=== PATIENT | female | born 1965 | race Two or more races ===

== ENCOUNTER 2017-11-20 10:22 | Outpatient (CLI) | payer OTHER ==
[~2017-11-20 10:22] MED LIST: ZYRTEC10 MG PO
== END 2017-11-20 10:27 | disposition home or self-care (01) ==
LOC: RAD 501 10:22
DX: J45.40 Moderate persistent asthma, uncomplicated (principal); R05 Cough

== ENCOUNTER → 2018-02-07 13:22 | Outpatient (CLI) | payer OTHER | END | disposition home or self-care (01) | LOC: LAB 13:22 | DX: N92.5 Other specified irregular menstruation (principal); N94.0 Mittelschmerz; N95.1 Menopausal and female climacteric states; R68.82 Decreased libido; K85.80 Other acute pancreatitis without necrosis or infection; E88.81 Metabolic syndrome and other insulin resistance; I10 Essential (primary) hypertension; D72.818 Other decreased white blood cell count; D68.0 Von Willebrand disease; D51.3 Other dietary vitamin B12 deficiency anemia; D50.8 Other iron deficiency anemias; D68.8 Other specified coagulation defects ==

== ENCOUNTER 2018-09-05 07:47 | Outpatient (CLI) | payer OTHER | END 2018-09-05 15:33 | disposition home or self-care (01) | LOC: LAB 07:47 | DX: D72.818 Other decreased white blood cell count (principal); D68.0 Von Willebrand disease; D51.3 Other dietary vitamin B12 deficiency anemia; J35.1 Hypertrophy of tonsils; D50.8 Other iron deficiency anemias; D51.8 Other vitamin B12 deficiency anemias; I10 Essential (primary) hypertension; D68.8 Other specified coagulation defects ==

== ENCOUNTER 2018-10-31 09:17 | Outpatient (CLI) | payer OTHER | END 2018-10-31 09:20 | disposition home or self-care (01) | LOC: RAD 09:17 | DX: M41.80 Other forms of scoliosis, site unspecified (principal); M17.0 Bilateral primary osteoarthritis of knee ==

== ENCOUNTER → 2018-11-19 07:20 | Outpatient (CLI) | payer OTHER | END | disposition home or self-care (01) | LOC: LAB 11-11 07:32 | DX: Z00.8 Encounter for other general examination (principal) ==

== ENCOUNTER 2019-05-01 07:30 | Outpatient (CLI) | payer OTHER | END 2019-05-01 07:40 | disposition home or self-care (01) | LOC: LAB 07:30 | DX: D68.0 Von Willebrand disease (principal); D72.818 Other decreased white blood cell count; D51.3 Other dietary vitamin B12 deficiency anemia; J35.1 Hypertrophy of tonsils; Z85.72 Personal history of non-Hodgkin lymphomas; D50.8 Other iron deficiency anemias; D51.8 Other vitamin B12 deficiency anemias; I10 Essential (primary) hypertension; E03.8 Other specified hypothyroidism; E55.9 Vitamin D deficiency, unspecified; K90.89 Other intestinal malabsorption; B27.99 Infectious mononucleosis, unspecified with other complication ==

== ENCOUNTER 2019-05-29 07:35 | Outpatient (CLI) | payer OTHER | END 2019-05-29 07:37 | disposition home or self-care (01) | LOC: NUCLEAR 07:35 | DX: C85.11 Unspecified B-cell lymphoma, lymph nodes of head, face, and neck (principal) | CPT/HCPCS: 78816; A9552 ==

== ENCOUNTER 2020-03-04 07:39 | Outpatient (CLI) | payer OTHER | END 2020-03-04 07:45 | disposition home or self-care (01) | LOC: NUCLEAR 07:39 | PROVIDERS: ATTEND Internal Medicine Cardiovascular Disease | DX: R07.89 Other chest pain (principal) | CPT/HCPCS: 78452; 93017; A9500 ==

== ENCOUNTER → 2020-04-01 | Outpatient (CLI) | payer OTHER | END | disposition home or self-care (01) | LOC: RAD 13:41 | PROVIDERS: ATTEND Orthopaedic Surgery Orthopaedic Surgery of the Spine | DX: M41.85 Other forms of scoliosis, thoracolumbar region (principal) ==

== ENCOUNTER → 2020-05-18 12:15 | Outpatient (CLI) | payer OTHER | END | disposition home or self-care (01) | LOC: LAB 12:15 | DX: Z20.828 Contact with and (suspected) exposure to other viral communicable diseases (principal) ==

== ENCOUNTER → 2020-06-27 | Outpatient (CLI) | payer OTHER | END | disposition home or self-care (01) | LOC: NUCLEAR 06-20 08:30 | PROVIDERS: ATTEND Internal Medicine Hematology & Oncology | DX: C95.11 Chronic leukemia of unspecified cell type, in remission (principal); D68.0 Von Willebrand disease; D72.10 Eosinophilia, unspecified; J33.1 Polypoid sinus degeneration; D51.3 Other dietary vitamin B12 deficiency anemia; Z85.72 Personal history of non-Hodgkin lymphomas | CPT/HCPCS: 78816; A9552 ==

== ENCOUNTER 2020-07-01 07:07 | Outpatient (CLI) | payer OTHER | END 2020-07-01 16:41 | disposition home or self-care (01) | LOC: LAB 07:07 | PROVIDERS: ATTEND Internal Medicine Hematology & Oncology | DX: D51.3 Other dietary vitamin B12 deficiency anemia (principal); E55.9 Vitamin D deficiency, unspecified; D68.0 Von Willebrand disease; D72.818 Other decreased white blood cell count; J35.1 Hypertrophy of tonsils; Z85.72 Personal history of non-Hodgkin lymphomas ==

== ENCOUNTER → 2020-09-01 06:15 | Outpatient (CLI) | payer OTHER | END | disposition home or self-care (01) | LOC: LAB 06:15 | PROVIDERS: ATTEND Internal Medicine Pulmonary Disease | DX: R05 Cough (principal); R06.02 Shortness of breath; R50.9 Fever, unspecified; Z20.822 Contact with and (suspected) exposure to COVID-19; Z20.828 Contact with and (suspected) exposure to other viral communicable diseases ==

== ENCOUNTER → 2020-10-07 09:44 | Outpatient (CLI) | payer OTHER | END | disposition home or self-care (01) | LOC: EDBD 09:44 → LAB 09:44 | PROVIDERS: ATTEND Obstetrics & Gynecology Gynecology | DX: Z03.818 Encounter for observation for suspected exposure to other biological agents ruled out (principal); N92.5 Other specified irregular menstruation; N94.0 Mittelschmerz; R68.82 Decreased libido ==

== ENCOUNTER → 2020-11-07 08:19 | Outpatient (CLI) | payer OTHER | END | disposition home or self-care (01) | LOC: LAB 08:19 → EDBD 08:19 | PROVIDERS: ATTEND Emergency Medicine Pediatric Emergency Medicine | DX: Z03.818 Encounter for observation for suspected exposure to other biological agents ruled out (principal) ==

== ENCOUNTER 2020-11-14 07:32 | Outpatient (CLI) | payer OTHER | END 2020-11-14 15:00 | disposition home or self-care (01) | LOC: EDBD 07:32 → LAB 07:32 | PROVIDERS: ATTEND Emergency Medicine Pediatric Emergency Medicine | DX: Z03.818 Encounter for observation for suspected exposure to other biological agents ruled out (principal) ==

== ENCOUNTER 2021-02-01 13:23 | Outpatient (CLI) | payer OTHER | END 2021-02-01 15:10 | disposition home or self-care (01) | LOC: NUCLEAR 13:23 → EDBD 13:23 → NUCLEAR 15:10 | PROVIDERS: ATTEND Obstetrics & Gynecology Gynecology | DX: M81.0 Age-related osteoporosis without current pathological fracture (principal) ==

== ENCOUNTER 2021-02-07 08:00 | Outpatient (CLI) | payer OTHER | END 2021-02-07 08:30 | disposition home or self-care (01) | LOC: PPH VACUNA 08:00 | DX: Z23 Encounter for immunization (principal) ==

== ENCOUNTER 2021-02-07 14:09 | Outpatient (CLI) | payer OTHER | END 2021-02-07 14:10 | disposition home or self-care (01) | LOC: SONOGRAMA 14:09 | PROVIDERS: ATTEND Internal Medicine | DX: E04.2 Nontoxic multinodular goiter (principal) ==

== ENCOUNTER 2021-03-06 14:17 | Outpatient (CLI) | payer OTHER | END 2021-03-06 14:31 | disposition home or self-care (01) | LOC: RAD 14:17 | PROVIDERS: ATTEND Orthopaedic Surgery Orthopaedic Surgery of the Spine | DX: M25.561 Pain in right knee (principal); M25.562 Pain in left knee; M41.82 Other forms of scoliosis, cervical region ==

== ENCOUNTER → 2021-03-22 | Outpatient (CLI) | payer OTHER | END | disposition home or self-care (01) | LOC: PPH VACUNA 08:00 | PROVIDERS: ATTEND Emergency Medicine Pediatric Emergency Medicine | DX: Z23 Encounter for immunization (principal) ==

== ENCOUNTER 2021-05-11 11:31 | Outpatient (CLI) | payer OTHER | END 2021-05-11 13:23 | disposition home or self-care (01) | LOC: LAB 11:31 | PROVIDERS: ATTEND Internal Medicine Hematology & Oncology | DX: D50.8 Other iron deficiency anemias (principal); Z01.818 Encounter for other preprocedural examination; Z01.812 Encounter for preprocedural laboratory examination; R79.89 Other specified abnormal findings of blood chemistry; I10 Essential (primary) hypertension; R74.02 Elevation of levels of lactic acid dehydrogenase [LDH]; K76.89 Other specified diseases of liver; D68.8 Other specified coagulation defects; C85.11 Unspecified B-cell lymphoma, lymph nodes of head, face, and neck; D68.0 Von Willebrand disease; D72.818 Other decreased white blood cell count; D51.3 Other dietary vitamin B12 deficiency anemia; J35.1 Hypertrophy of tonsils ==

== ENCOUNTER 2021-05-11 14:00 | Outpatient (CLI) | payer OTHER | END 2021-05-11 14:04 | disposition home or self-care (01) | LOC: RAD 14:00 | DX: I10 Essential (primary) hypertension (principal) ==

== ENCOUNTER 2021-05-15 07:36 | Outpatient (CLI) | payer OTHER | END 2021-05-15 08:36 | disposition home or self-care (01) | LOC: LAB 07:36 | DX: Z03.818 Encounter for observation for suspected exposure to other biological agents ruled out (principal) ==

== ENCOUNTER → 2021-06-30 07:48 | Outpatient (CLI) | payer OTHER | END | disposition home or self-care (01) | LOC: LAB 06-12 07:49 | PROVIDERS: ATTEND Emergency Medicine Pediatric Emergency Medicine | DX: Z03.818 Encounter for observation for suspected exposure to other biological agents ruled out (principal) ==

== ENCOUNTER 2022-01-31 06:06 | Outpatient (CLI) | payer OTHER | END 2022-01-31 08:10 | disposition home or self-care (01) | LOC: LAB 06:06 | PROVIDERS: ATTEND Emergency Medicine Pediatric Emergency Medicine | DX: N92.5 Other specified irregular menstruation (principal); N94.0 Mittelschmerz; N95.1 Menopausal and female climacteric states; R68.82 Decreased libido; K85.90 Acute pancreatitis without necrosis or infection, unspecified; E88.81 Metabolic syndrome and other insulin resistance; I10 Essential (primary) hypertension; E03.9 Hypothyroidism, unspecified; N39.0 Urinary tract infection, site not specified; R19.09 Other intra-abdominal and pelvic swelling, mass and lump; R79.0 Abnormal level of blood mineral; E11.9 Type 2 diabetes mellitus without complications; R94.7 Abnormal results of other endocrine function studies; E78.00 Pure hypercholesterolemia, unspecified; E55.9 Vitamin D deficiency, unspecified; N97.8 Female infertility of other origin; D27.9 Benign neoplasm of unspecified ovary; M25.561 Pain in right knee; M25.562 Pain in left knee ==

== ENCOUNTER 2022-02-02 08:20 | Outpatient (CLI) | payer OTHER | END 2022-02-02 08:30 | disposition home or self-care (01) | LOC: PPH VACUNA 08:20 | PROVIDERS: ATTEND Emergency Medicine Pediatric Emergency Medicine | DX: Z23 Encounter for immunization (principal) ==

== ENCOUNTER 2022-02-08 06:53 | Outpatient (CLI) | payer OTHER | END 2022-02-08 07:35 | disposition home or self-care (01) | LOC: MRI 06:53 | PROVIDERS: ATTEND Orthopaedic Surgery | DX: M25.561 Pain in right knee (principal); M94.261 Chondromalacia, right knee | CPT/HCPCS: 73721 ==

== ENCOUNTER 2022-05-21 12:37 | Outpatient (CLI) | payer OTHER | END 2022-05-21 12:58 | disposition home or self-care (01) | LOC: LAB 12:37 | PROVIDERS: ATTEND Internal Medicine Pulmonary Disease | DX: J11.1 Influenza due to unidentified influenza virus with other respiratory manifestations (principal); J20.1 Acute bronchitis due to Hemophilus influenzae; R05.9 Cough, unspecified; R06.02 Shortness of breath; R50.9 Fever, unspecified; Z20.828 Contact with and (suspected) exposure to other viral communicable diseases ==

== ENCOUNTER 2022-06-05 07:38 | Outpatient (CLI) | payer OTHER | END 2022-06-05 07:43 | disposition home or self-care (01) | LOC: NUCLEAR 07:38 | DX: D68.8 Other specified coagulation defects (principal) | CPT/HCPCS: 78816; A9552 ==

== ENCOUNTER 2022-06-13 09:06 | Outpatient (CLI) | payer OTHER | END 2022-06-13 09:16 | disposition home or self-care (01) | LOC: PPH VACUNA 09:06 | PROVIDERS: ATTEND Emergency Medicine Pediatric Emergency Medicine | DX: Z23 Encounter for immunization (principal) ==

== ENCOUNTER 2022-07-25 07:33 | Outpatient (CLI) | payer OTHER | END 2022-07-25 07:44 | disposition home or self-care (01) | LOC: SONOGRAMA 07:33 | DX: E03.9 Hypothyroidism, unspecified (principal) ==

== ENCOUNTER 2022-10-13 08:30 | Outpatient (CLI) | payer OTHER | END 2022-10-13 08:34 | disposition home or self-care (01) | LOC: LAB 08:30 | DX: Z01.812 Encounter for preprocedural laboratory examination (principal); D68.8 Other specified coagulation defects; N63.0 Unspecified lump in unspecified breast; N39.0 Urinary tract infection, site not specified; Z86.03 Personal history of neoplasm of uncertain behavior ==

== ENCOUNTER 2022-11-23 | Outpatient (CLI) | payer OTHER ==
[~2022-11-23] MED LIST changes: +ARMOUR THYROID15 MG
== END 2022-11-23 00:15 | disposition home or self-care (01) ==
LOC: PPH VACUNA
PROVIDERS: ATTEND Emergency Medicine Pediatric Emergency Medicine
DX: Z23 Encounter for immunization (principal)

== ENCOUNTER 2023-02-05 07:18 | Outpatient (CLI) | payer OTHER | END 2023-02-05 07:59 | disposition home or self-care (01) | LOC: LAB 07:18 | PROVIDERS: ATTEND Emergency Medicine Pediatric Emergency Medicine | DX: D64.9 Anemia, unspecified (principal); R53.83 Other fatigue ==

== ENCOUNTER 2023-02-11 08:07 | Outpatient (CLI) | payer OTHER | END 2023-02-11 08:09 | disposition home or self-care (01) | LOC: LAB 08:07 | DX: D68.8 Other specified coagulation defects (principal); D68.00 Von Willebrand disease, unspecified; Z88.6 Allergy status to analgesic agent ==

== ENCOUNTER 2023-03-05 08:11 | Outpatient (CLI) | payer OTHER | END 2023-03-05 08:12 | disposition home or self-care (01) | LOC: NUCLEAR 08:11 | DX: D68.8 Other specified coagulation defects (principal); D68.00 Von Willebrand disease, unspecified ==

== ENCOUNTER 2023-03-06 09:19 | Outpatient (CLI) | payer OTHER | END 2023-03-06 12:05 | disposition home or self-care (01) | LOC: LAB 09:19 | PROVIDERS: ATTEND Colon & Rectal Surgery | DX: K92.1 Melena (principal); R14.0 Abdominal distension (gaseous); Z88.6 Allergy status to analgesic agent; Z88.9 Allergy status to unspecified drugs, medicaments and biological substances ==

== ENCOUNTER 2023-05-01 14:00 | Outpatient (CLI) | payer OTHER | END 2023-05-01 14:10 | disposition home or self-care (01) | LOC: PPH VACUNA 14:00 | PROVIDERS: ATTEND Emergency Medicine Pediatric Emergency Medicine | DX: Z23 Encounter for immunization (principal) | CPT/HCPCS: 90686; G0008 ==

== ENCOUNTER 2023-05-20 07:26 | Outpatient (CLI) | payer OTHER | END 2023-05-20 15:17 | disposition home or self-care (01) | LOC: TOM 07:26 | DX: Z94.81 Bone marrow transplant status (principal); Z88.6 Allergy status to analgesic agent ==

== ENCOUNTER 2023-07-17 09:46 | Outpatient (CLI) | payer OTHER ==
[2023-07-17 10:57] LABS: HEMATOCRIT 41.7 % (36.0-45.00); HEMOGLOBIN 14.1 g/dL (12.0-15.00); MEAN CORPUSCULAR HEMOGLOBIN 31.4 pg (27.00-32.0); MEAN CORPUSCULAR HGB CONC 33.8 g/dl (32.0-36.0); PLATELET COUNT 211 K/uL (150-450); RED BLOOD COUNT 4.48 M/uL (4.00-6.00); RED CELL DISTRIBUTION WIDTH 14.2 % (11.5-14.5)
[2023-07-17 11:25] LABS: INR 0.99; PARTIAL THROMBOPLASTIN TIME 31.6 SECONDS (22.0-34.0); PROTHROMBIN TIME 10.4 SECONDS (9.0-11.5)
[2023-07-17 11:29] LABS: ALBUMIN 4.5 gm/dL (3.4-5.0); BILIRUBIN TOTAL 0.93 mg/dL (0.3-1.2); CALCIUM 10.3 mg/dL (8.5-10.1); CREATININE SERUM 0.78 mg/dL (0.55-1.02); GFR 75.85; GLOBULINA 2.6 G/DL (2.4-3.5); POTASSIUM 4.69 mEq/L (3.5-5.1); TOTAL PROTEIN 7.1 gm/dL (6.4-8.2)
== END 2023-07-17 12:25 | disposition home or self-care (01) ==
LOC: LAB 09:46
DX: D68.8 Other specified coagulation defects (principal)

== ENCOUNTER 2023-08-07 09:04 | Outpatient (CLI) | payer OTHER ==
[2023-08-07 10:06] LABS: HEMATOCRIT 39.7 % (36.0-45.00); HEMOGLOBIN 13.4 g/dL (12.0-15.00); MEAN CELL VOLUME 91.9 fL (80.00-100.00); MEAN CORPUSCULAR HGB CONC 33.7 g/dl (32.0-36.0); PLATELET COUNT 210 K/uL (150-450); RED BLOOD COUNT 4.32 M/uL (4.00-6.00); RED CELL DISTRIBUTION WIDTH 13.9 % (11.5-14.5)
[2023-08-07 10:36] LABS: CALCIUM 10.8 mg/dL (8.5-10.1); CREATININE SERUM 0.64 mg/dL (0.55-1.02); GFR 95.31; POTASSIUM 3.97 mEq/L (3.5-5.1)
[2023-08-07 10:49] LABS: INR 0.98; PARTIAL THROMBOPLASTIN TIME 31.5 SECONDS (22.0-34.0); PROTHROMBIN TIME 10.3 SECONDS (9.0-11.5)
[2023-08-07 11:00] LABS: VITAMIN D3 25 HYDROXY 48.92 ng/ml (30-120)
== END 2023-08-07 11:55 | disposition home or self-care (01) ==
LOC: LAB 09:04
DX: D64.9 Anemia, unspecified (principal); I12.9 Hypertensive chronic kidney disease with stage 1 through stage 4 chronic kidney disease, or unspecified chronic kidney disease; D68.9 Coagulation defect, unspecified; E56.9 Vitamin deficiency, unspecified; E55.9 Vitamin D deficiency, unspecified

== ENCOUNTER 2023-10-02 06:41 | Outpatient (CLI) | payer OTHER | END 2023-10-02 06:46 | disposition home or self-care (01) | LOC: NUCLEAR 06:41 | DX: D68.8 Other specified coagulation defects (principal); D68.00 Von Willebrand disease, unspecified ==

== ENCOUNTER 2024-03-16 14:07 | Outpatient (CLI) | payer OTHER | END 2024-03-16 14:18 | disposition home or self-care (01) | LOC: SONOGRAMA 14:07 | PROVIDERS: ATTEND Obstetrics & Gynecology | DX: R10.2 Pelvic and perineal pain (principal); R19.00 Intra-abdominal and pelvic swelling, mass and lump, unspecified site ==

== ENCOUNTER 2024-04-14 07:22 | Outpatient (CLI) | payer OTHER | END 2024-04-14 07:30 | disposition home or self-care (01) | LOC: NUCLEAR 07:22 | DX: D68.8 Other specified coagulation defects (principal); D68.00 Von Willebrand disease, unspecified ==

== ENCOUNTER 2024-04-21 09:07 | Outpatient (CLI) | payer OTHER ==
[2024-04-21 09:48] LABS: HEMATOCRIT 39.7 % (36.0-45.00); HEMOGLOBIN 13.2 g/dL (12.0-15.00); MEAN CELL VOLUME 94.6 fL (80.00-100.00); MEAN CORPUSCULAR HEMOGLOBIN 31.5 pg (27.00-32.0); MEAN CORPUSCULAR HGB CONC 33.3 g/dl (32.0-36.0); PLATELET COUNT 177 K/uL (150-450); RED CELL DISTRIBUTION WIDTH 13.4 % (11.5-14.5)
[2024-04-21 10:31] LABS: ALBUMIN 4.3 gm/dL (3.4-5.0); BILIRUBIN TOTAL 0.59 mg/dL (0.3-1.2); CALCIUM 10.3 mg/dL (8.5-10.1); CREATININE SERUM 0.7 mg/dL (0.55-1.02); GFR 85.65; GLOBULINA 2.5 G/DL (2.4-3.5); POTASSIUM 4.07 mEq/L (3.5-5.1); TOTAL PROTEIN 6.8 gm/dL (6.4-8.2)
== END 2024-04-21 15:30 | disposition home or self-care (01) ==
LOC: LAB 09:07
DX: D68.8 Other specified coagulation defects (principal)

== ENCOUNTER 2024-05-14 06:50 | Outpatient (CLI) | payer OTHER ==
[2024-05-14 13:46] LABS: T4 TOTAL 10.91 UG/DL (4.8-13.9); TSH 1.47 uIU/mL (0.358-3.74)
== END 2024-05-14 12:51 | disposition home or self-care (01) ==
LOC: LAB 06:50
DX: D68.8 Other specified coagulation defects (principal); D68.09 Other von Willebrand disease

== ENCOUNTER 2024-08-13 07:54 | Outpatient (CLI) | payer OTHER ==
[2024-08-13 08:23] LABS: HEMATOCRIT 40.1 % (36.0-45.00); HEMOGLOBIN 13.7 g/dL (12.0-15.00); MEAN CELL VOLUME 92.8 fL (80.00-100.00); MEAN CORPUSCULAR HEMOGLOBIN 31.8 pg (27.00-32.0); MEAN CORPUSCULAR HGB CONC 34.3 g/dl (32.0-36.0); PLATELET COUNT 168 K/uL (150-450); RED BLOOD COUNT 4.32 M/uL (4.00-6.00); RED CELL DISTRIBUTION WIDTH 14.5 % (11.5-14.5)
[2024-08-13 08:41] LABS: ALBUMIN 4.1 gm/dL (3.4-5.0); BILIRUBIN TOTAL 0.55 mg/dL (0.3-1.2); CALCIUM 9.3 mg/dL (8.5-10.1); CREATININE SERUM 0.68 mg/dL (0.55-1.02); GFR 88.56; GLOBULINA 2.7 G/DL (2.4-3.5); POTASSIUM 3.92 mEq/L (3.5-5.1); TOTAL PROTEIN 6.8 gm/dL (6.4-8.2)
== END 2024-08-13 07:55 | disposition home or self-care (01) ==
LOC: LAB 07:54
DX: D68.8 Other specified coagulation defects (principal); D68.00 Von Willebrand disease, unspecified

== ENCOUNTER 2024-08-20 08:43 | Outpatient (CLI) | payer OTHER ==
[2024-08-20 09:30] LABS: HEMATOCRIT 41.6 % (36.0-45.00); HEMOGLOBIN 13.6 g/dL (12.0-15.00); MEAN CELL VOLUME 93.6 fL (80.00-100.00); MEAN CORPUSCULAR HEMOGLOBIN 30.6 pg (27.00-32.0); MEAN CORPUSCULAR HGB CONC 32.7 g/dl (32.0-36.0); PLATELET COUNT 186 K/uL (150-450); RED BLOOD COUNT 4.45 M/uL (4.00-6.00); RED CELL DISTRIBUTION WIDTH 14.2 % (11.5-14.5)
== END 2024-08-20 12:38 | disposition home or self-care (01) ==
LOC: LAB 08:43
DX: D68.8 Other specified coagulation defects (principal); N39.0 Urinary tract infection, site not specified

== ENCOUNTER 2024-08-28 09:07 | Outpatient (CLI) | payer OTHER ==
[2024-08-28 10:02] LABS: HEMOGLOBIN 13.4 g/dL (12.0-15.00); MEAN CELL VOLUME 93.7 fL (80.00-100.00); MEAN CORPUSCULAR HEMOGLOBIN 31.3 pg (27.00-32.0); MEAN CORPUSCULAR HGB CONC 33.4 g/dl (32.0-36.0); PLATELET COUNT 195 K/uL (150-450); RED BLOOD COUNT 4.27 M/uL (4.00-6.00); RED CELL DISTRIBUTION WIDTH 14.2 % (11.5-14.5)
== END 2024-08-28 09:09 | disposition home or self-care (01) ==
LOC: LAB 09:07
DX: D68.8 Other specified coagulation defects (principal); D68.09 Other von Willebrand disease

== ENCOUNTER 2024-11-06 06:48 | Outpatient (CLI) | payer OTHER | END 2024-11-06 06:49 | disposition home or self-care (01) | LOC: NUCLEAR 06:48 | DX: D68.8 Other specified coagulation defects (principal); D68.00 Von Willebrand disease, unspecified ==

== ENCOUNTER 2024-12-03 14:40 | Outpatient (CLI) | payer OTHER ==
[2024-12-03 08:34] LABS: PH,URINE 5.5 (5.0-8.0); URINE APPEARANCE Clear; URINE BILIRRUBIN Negative (NEGATIVE); URINE BLOOD Negative; URINE COLOR Yellow; URINE GLUCOSE Negative (NEGATIVE); URINE KETONE Negative (NEGATIVE); URINE LEUKOCYTE Trace; URINE NITRATE Negative; URINE PROTEIN Negative (NEGATIVE); URINE UROBILINOGEN 0.2 E.U./dl
[2024-12-03 08:40] LABS: BASO % 1.5 % (0.1-1.2); EOS # 0.13 (0.04-0.54); HEMATOCRIT 40.5 % (34.1-44.9); HEMOGLOBIN 13.1 g/dL (11.2-15.7); LYMPH # 1.59 (1.18-3.74); LYMPH % 48.8 % (19.3-53.1); MEAN CORPUSCULAR HEMOGLOBIN 30.5 pg (25.6-32.2); MONO # 0.22 (0.24-0.82); MONO % 6.7 % (4.7-12.5); NEUT # 1.26 (1.56-6.13); NEUT % 38.7 % (34.0-71.1); PLATELET COUNT 185 K/uL (163-369); RED CELL DISTRIBUTION WIDTH 13.5 % (11.6-14.4); URINE BACTERIA 980.3 uL (0.0-1933); URINE CAST 0.14 uL (0.0-1.40); URINE EPITHELIAL CELLS 46.6 uL (0.0-38.8); URINE RBC 7.5 uL (0.0-20.8); URINE WBC 21.9 uL (0.0-23.2)
[2024-12-03 09:51] LABS: BILIRUBIN TOTAL 0.63 mg/dL (0.3-1.2); CALCIUM 9.3 mg/dL (8.5-10.1); CHOL HDL RATIO 2.2 (0-5.0); CREATININE SERUM 0.64 mg/dL (0.55-1.02); GFR 94.65; GLOBULINA 2.6 G/DL (2.4-3.5); POTASSIUM 4.05 mEq/L (3.5-5.1); T4 FREE 0.98 NG/ML (0.76-1.46); TOTAL PROTEIN 6.6 gm/dL (6.4-8.2); TSH 1.59 uIU/mL (0.358-3.74)
[~2024-12-03 14:40] MED LIST changes: -VOLTAREN ARTHRI20 GM TOP
[2024-12-04 11:12] LABS: CA 125 14.7 U/mL (0.0-38.1); VITAMIN D 1 25 36.7 pg/mL (24.8-81.5)
== END 2024-12-03 14:42 | disposition home or self-care (01) ==
LOC: LAB 14:40
PROVIDERS: ATTEND Obstetrics & Gynecology
DX: D64.9 Anemia, unspecified (principal); E03.8 Other specified hypothyroidism; N95.1 Menopausal and female climacteric states; I10 Essential (primary) hypertension; C51.9 Malignant neoplasm of vulva, unspecified; A64 Unspecified sexually transmitted disease; N39.0 Urinary tract infection, site not specified; R97.8 Other abnormal tumor markers; R79.89 Other specified abnormal findings of blood chemistry; E55.9 Vitamin D deficiency, unspecified; A60.9 Anogenital herpesviral infection, unspecified; D68.8 Other specified coagulation defects; D68.00 Von Willebrand disease, unspecified

== ENCOUNTER → 2024-12-03 | Outpatient (CLI) | payer OTHER ==
[~2024-12-03] MED LIST changes: +VOLTAREN ARTHRI20 GM TOP
== END | disposition home or self-care (01) ==
LOC: MAMO-SONO 11:55
PROVIDERS: ATTEND Obstetrics & Gynecology
DX: N60.11 Diffuse cystic mastopathy of right breast (principal); N60.12 Diffuse cystic mastopathy of left breast; R10.2 Pelvic and perineal pain

== ENCOUNTER 2024-12-21 09:40 | Outpatient (CLI) | payer OTHER ==
[~2024-12-21 09:40] MED LIST changes: +VOLTAREN ARTHRI20 GM TOP
== END 2024-12-21 09:51 | disposition home or self-care (01) ==
LOC: MRI 09:40
PROVIDERS: ATTEND Physical Medicine & Rehabilitation
DX: M25.571 Pain in right ankle and joints of right foot (principal)
CPT/HCPCS: 73721

== ENCOUNTER 2025-01-05 10:46 | Outpatient (CLI) | payer OTHER ==
[2025-01-05 13:15] LABS: COVID-19 AG POSITIVE (NEGATIVE)
== END 2025-01-05 10:50 | disposition home or self-care (01) ==
LOC: LAB 10:46
PROVIDERS: ATTEND Emergency Medicine Pediatric Emergency Medicine
DX: J06.9 Acute upper respiratory infection, unspecified (principal)

== ENCOUNTER 2025-03-16 10:28 | Outpatient (CLI) | payer OTHER ==
[~2025-03-16 10:28] MED LIST changes: +GABAPENTIN300 M2 PO
== END 2025-03-16 10:46 | disposition home or self-care (01) ==
LOC: NUCLEAR 10:28
PROVIDERS: ATTEND Internal Medicine
DX: I65.21 Occlusion and stenosis of right carotid artery (principal)

== ENCOUNTER → 2025-04-30 07:10 | Outpatient (CLI) | payer OTHER | END | disposition home or self-care (01) | LOC: NUCLEAR 07:00 | PROVIDERS: ATTEND Internal Medicine | DX: I20.9 Angina pectoris, unspecified (principal) ==

== ENCOUNTER → 2025-06-02 07:16 | Outpatient (CLI) | payer OTHER ==
[2025-06-02 08:39] LABS: BASO % 1.0 % (0.1-1.2); EOS # 0.13 (0.04-0.54); EOS % 3.3 % (0.7-7.0); LYMPH # 1.99 (1.18-3.74); LYMPH % 50.1 % (19.3-53.1); MEAN PLATELET VOLUME 10.60 fl (9.4-12.4); MONO # 0.38 (0.24-0.82); MONO % 9.6 % (4.7-12.5); NEUT # 1.42 (1.56-6.13); NEUT % 35.7 % (34.0-71.1); RED CELL DISTRIBUTION WIDTH 13.2 % (11.6-14.4)
[2025-06-02 08:56] LABS: ALT/SGPT 44.0 U/L (12-78); AST/SGOT 25.0 U/L (15-37); BILIRUBIN TOTAL 0.86 mg/dL (0.3-1.2); BUN CREA RATIO 28.0 (7.0-25.0); CREATININE SERUM 0.6 mg/dL (0.55-1.02); GFR 101.97; GLOBULINA 2.6 G/DL (2.4-3.5); GLUCOSE FASTING 92.0 mg/dL (65-100); LDH 205.0 U/L (84-246); OSMOLALITY SERUM 290.0 MOSM/KG (275-295)
== END | disposition home or self-care (01) ==
LOC: LAB 06-01 14:23
DX: D68.8 Other specified coagulation defects (principal); D68.00 Von Willebrand disease, unspecified; Z85.72 Personal history of non-Hodgkin lymphomas

== ENCOUNTER 2025-06-11 10:05 | Outpatient (CLI) | payer OTHER | END 2025-06-11 11:29 | disposition home or self-care (01) | LOC: LAB 10:05 | PROVIDERS: ATTEND Internal Medicine Pulmonary Disease | DX: J11.1 Influenza due to unidentified influenza virus with other respiratory manifestations (principal) ==